=== PATIENT | male | born 1995 | race Two or more races ===

== ENCOUNTER 2023-01-01 22:46 | Emergency (ER) | payer MEDICAID, OTHER ==
[~2023-01-01] VITALS: Ht 180.3 cm; Wt 109.3 kg
[2023-01-01 23:12] LABS: Basophils # (auto) 0.1 10 ^3/uL (0-0.2); Basophils % (auto) 0.7 % (0.0-2.0); Eosinophils # (auto) 0.5 10 ^3/uL (0-0.8); Eosinophils % (auto) 4.6 % (0.0-7.0); Hematocrit 49.9 % (41.0-53.0); Lymphocytes # (auto) 3.5 10 ^3/uL (0.4-5.4); Lymphocytes % (auto) 35.5 % (10.0-50.0); Mean Corpuscular Hemoglobin 28.6 pg (28.0-32.0); Monocytes # (auto) 0.8 10 ^3/uL (0-1.3); Monocytes % (auto) 8.1 % (0.0-12.0); Neutrophils # (auto) 5.1 10 ^3/uL (1.6-8.6); Neutrophils % (auto) 51.1 % (37.0-80.0); Nucleated Red Blood Cells % 0.1 %; Red Blood Cells 5.93 10^6/uL (4.5-5.90); Red Cell Distribution Width 14.6 % (11.8-14.3); White Blood Cell 9.9 10^3/uL (4.4-10.8)
[2023-01-01 23:29] LABS: Alanine Aminotransferase 60 U/L (7-40); Alkaline Phosphatase 62 U/L (46-116); Anion Gap 10.5 (5-15); Aspartate Aminotransferase 24 U/L (13-40); Blood Urea Nitrogen 12 mg/dL (9-23); Calcium 9.8 mg/dL (8.7-10.4); Carbon Dioxide 25.5 mmol/L (20-30); Chloride 106 mmol/L (98-107); Glucose 99 mg/dL (74-106); Magnesium 2.2 mg/dL (1.6-2.6); Potassium 3.8 mmol/L (3.5-5.1); Sodium 142 mmol/L (136-145)
[2023-01-01 23:30] LABS: Albumin 5.1 g/dL (3.2-4.8); Bilirubin, Total 0.6 mg/dL (0.2-1.0); Total Protein 7.9 g/dL (5.7-8.2)
[2023-01-02 00:03] LABS: Urine Bacteria NONE SEEN /hpf (None Seen); Urine Blood Negative /uL (Negative); Urine Clarity Clear (Clear); Urine Color Yellow (Yellow); Urine Protein, UAD Negative (Negative); Urine Specific Gravity 1.026 (1.001-1.035); Urine WBC <1 /hpf (0 - 3)
[2023-01-02] MEDS ORDERED: HYDR25CA PO (00:23)
[2023-01-02] MEDS ORDERED: LORazepam 0.5 MG TAB PO ONE (00:45)
[2023-01-02 00:48] VITALS: BP 124/82; PULSE 96; RESP 18; TEMP 98.2; O2SAT 97
== END 2023-01-02 00:49 | disposition home or self-care (01) ==
LOC: EDBD 22:46 → ER 22:46
DX: R00.2 Palpitations (principal); R07.9 Chest pain, unspecified; F41.9 Anxiety disorder, unspecified; J45.909 Unspecified asthma, uncomplicated; F12.10 Cannabis abuse, uncomplicated; Z79.899 Other long term (current) drug therapy
CPT/HCPCS: 36415; 71045; 80053; 81001; 83735; 83880; 84443; 84484; 85025; 93005